=== PATIENT | male | born 1985 | race American Indian/Alaskan Native ===

== ENCOUNTER 2019-03-12 19:13 | Emergency (ER) | payer OTHER ==
[2019-03-12 21:04] VITALS: BP 150/84
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
--- NOTE | 2019-03-12 21:49 | XRay Report ---
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 Cannot exclude AC joint separation given the relativ e osteolysis of the distal left clavicle. There is no evidence of left humeral fracture or left gleno humeral dislocation. Signer Name: Donta Stevenson MD Signed: 03/12/2019 9:45 PM Workstation Name: [id number]
[2019-03-13] MEDS ORDERED: IBUPROFEN 800 MG TAB PO ONE (00:52)
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
== END 2019-03-13 02:38 | disposition home or self-care (01) ==
LOC: ED 19:13
DX: S46.912A Strain of unspecified muscle, fascia and tendon at shoulder and upper arm level, left arm, initial encounter (principal); S39.012A Strain of muscle, fascia and tendon of lower back, initial encounter; S00.83XA Contusion of other part of head, initial encounter; Z79.899 Other long term (current) drug therapy; V79.59XA Passenger on bus injured in collision with other motor vehicles in traffic accident, initial encounter; Y93.89 Activity, other specified; Y92.410 Unspecified street and highway as the place of occurrence of the external cause; Y99.8 Other external cause status
CPT/HCPCS: 70486; 72100